=== PATIENT | female | born 1975 | race African-American/Black ===

== ENCOUNTER 2017-07-10 08:14 | Emergency (ER) | payer SELFPAY ==
[~2017-07-10 08:14] MED LIST: Docusate Sod/Senna PO; IBUP600 PO; POLY119S PO; PRENCAP6 PO; SPRI28TA PO
[2017-07-10 08:22] VITALS: BP 115/63; PULSE 86; RESP 16; TEMP 97.3; O2SAT 99
--- NOTE | 2017-07-10 08:38 | PD ---
HPI Chief Complaint: Lump, Cyst, Hernia Time Seen by Provider: 08:30 Travel History International Travel<30 days: No Contact w/Intl Traveler<30days: No Traveled to known affect area: No History of Present Illness HPI This is a 41-year-old female who presents for evaluation. She reports that yesterday she noticed a nodule on the inferior aspect of her chin. It is painless. There is no obvious aggravating or alleviating factors. She denies any cough, sore throat, congestion, facial rash, ear pain. Denies any fevers or chills. She is otherwise healthy with no other complaints at this time. [facility] Social History Alcohol Use: No Tobacco Use: No Allergies-Medications (Allergen,Severity, Reaction): Coded Allergies: No Known Allergies (Unverified Adverse Reaction, Unknown, 07/10/17) Reported Meds & Prescriptions Reported Meds & Active Scripts Active Sprintec 28 (Ethinyl Estradiol/Norgestimate) 1 Tab Tab 1 Tab PO DAILY Miralax 119 Gm Bottle (Polyethylene Glycol) 119 Gm Powd 17 Gm PO DAILY 17 GRAMS = 1 TABLESPOON DISSOLVED IN 4 TO 8 OUNCES OF BEVERAGE [Docusate Sod/Senna] 1 TAB Tab 2 Tab PO Q12H PRN Motrin 600 Mg Tab (Ibuprofen) 600 Mg Tab 600 Mg PO Q6H PRN Reported 1 ( Multivitamins) Cap 1 Cap PO DAILY Review of Systems General / Constitutional: No: Fever, Chills Eyes: No: Redness, Pain HENT: No: Headaches, Sore Throat, Congestion Respiratory: No: Cough Physical Exam Narrative GENERAL: Well-developed well-nourished female no acute distress SKIN: Warm and dry. The patient has a small pustule on the chin. HEAD: Atraumatic. Normocephalic. EYES: Pupils equal and round. No scleral icterus. No injection or drainage. ENT: No nasal bleeding or discharge. Mucous membranes pink and moist. NECK: Trachea midline. No JVD. Patient has painless submental lymphadenopathy. The lymph node is rounded and non-fixed. CARDIOVASCULAR: Regular rate and rhythm. No murmur appreciated. RESPIRATORY: No accessory muscle use. Clear to auscultation. Breath sounds equal bilaterally. Data Data Last Documented VS Vital Signs Date Time Temp Pulse Resp B/P (MAP) Pulse Ox O2 Delivery O2 Flow Rate FiO2 07/10/17 08:22 97.3 86 16 115/63 (80) 99 MDM Medical Decision Making Medical Screen Exam Complete: Yes Emergency Medical Condition: Yes Medical Record Reviewed: Yes Differential Diagnosis Reactive lymphadenopathy, cyst, abscess, lymphoma Narrative Course Physical examination reveals a small posterior lesion on the chin with a nearby rubbery and movable lymph node in the submental region, likely reactive lymphadenopathy. The patient was reassured. She is stable for discharge. Diagnosis Primary Impression: Reactive lymphadenopathy Additional Instructions: Follow-up with primary care physician if symptoms persist for greater than 2 weeks. Return for any emergent medical conditions. Med/Other Pt SpecificInfo: No Change to Meds Disposition: 01 DISCHARGE HOME Condition: Stable All Haines Jul 10, 2017 08:38
== END 2017-07-10 09:00 | disposition home or self-care (01) ==
LOC: NEPD 08:14
DX: R59.1 Generalized enlarged lymph nodes (principal)
CPT/HCPCS: 99281